=== PATIENT | female | born 1995 | race Caucasian/White ===

== ENCOUNTER 2017-11-11 13:18 | Outpatient (REF) | payer BC, SELFPAY | END 2017-11-11 13:38 | LOC: LBN 13:18 | PROVIDERS: PCP Internal Medicine; Visit Provider Obstetrics & Gynecology | DX: N89.8 Other specified noninflammatory disorders of vagina (principal) | CPT/HCPCS: 87480; 87510; 87660 ==

== ENCOUNTER 2021-08-28 18:41 | Outpatient (REF) | payer MEDICAID, SELFPAY | END 2021-08-28 18:42 | disposition home or self-care (01) | LOC: LBN 18:41 | PROVIDERS: PCP Nurse Practitioner Adult Health; Visit Provider Nurse Practitioner Family | DX: R30.0 Dysuria (principal) | CPT/HCPCS: 87086 ==